=== PATIENT | male | born 1995 | race Caucasian/White ===

== ENCOUNTER 2017-04-14 17:09 | Emergency (ER) | payer MEDICAID, OTHER ==
[2017-04-14 17:28] VITALS: O2SAT 95
[2017-04-14] MEDS ORDERED: NS 1,000 ML IV ONE ×2 (17:39→18:31)
--- NOTE | 2017-04-14 17:46 | EDPHY ---
H & P Stated Complaint: BLOODY STOOLS FOR 1.5 WEEKS, DENIES ABD PAIN Time Seen by Provider: 04/14/17 17:14 HPI/ROS: CHIEF COMPLAINT: Loose bloody stools HISTORY OF PRESENT ILLNESS: This is a 22-year-old male who reports for the last week and half he has had intermittent episodes of loose, bloody stools. Symptoms started the day after having his wisdom teeth removed. Patient was given narcotic pain medications as well as nonsteroidals. No antibiotics. He reports having 1 episode of vomiting, nonbloody. May have had a fever a week and half ago but none currently. Reports ongoing queasiness and very mild discomfort in his stomach. Presented today because he has had increased stooling today, with bloody diarrhea. Reports stools are loose, and full of blood. No pain with defecation. No history of hemorrhoids. No history of inflammatory bowel disease or Crohn's disease. No urinary complaints. No lightheadedness, dizziness, or fainting. No travel outside the [place], no ill contacts. No chills, chest pain, shortness of breath, palpitations, vomiting, urinary complaints, headache, lightheadedness. REVIEW OF SYSTEMS: Aside from elements discussed in the HPI, a comprehensive 10-point review of systems was reviewed and is negative. PAST MEDICAL HISTORY: History of appendectomy. SOCIAL HISTORY: Nonsmoker, no alcohol. VITAL SIGNS Reviewed by me. GENERAL: Pleasant, well-developed well-nourished. No acute distress. HEENT: Atraumatic. Eyes: No icterus, no injection. Mouth: moist mucous membranes. No erythema or lesions. Neck: supple with no adenopathy. LUNGS: Clear to auscultation bilaterally, no wheezes, rhonchi or rales. CARDIAC: Regular rate and rhythm, no rubs, murmurs or gallops. ABDOMEN: Soft, no tenderness, no distension. Somewhat diminished bowel sounds. RECTAL: Nontender, no hemorrhoids noted, no blood on the glove. No stool on the glove. BACK: No CVA tenderness. EXTREMITIES: No trauma. No edema. Range of motion is normal throughout. NEURO: Alert and oriented, grossly nonfocal. SKIN: Warm and dry, no rash. PSYCHIATRIC: Normal mentation, no agitation. - Medical/Surgical History Other PMH: APPY, NEW DAILY HEADACHE SYNDROME - Social History Smoking Status: Never smoked Constitutional: Initial Vital Signs Temperature (C) 36.4 C 04/14/17 17:22 Heart Rate 72 04/14/17 17:22 Respiratory Rate 18 04/14/17 17:22 Blood Pressure 153/83 H 04/14/17 17:22 O2 Sat (%) 95 04/14/17 17:22 O2 Delivery Mode Room Air Allergies/Adverse Reactions: No Known Allergies Allergy (Unverified 04/14/17 17:21) Home Medications: Medication Instructions Recorded Ciprofloxacin [Cipro] 500 mg PO BID #6 tab 04/14/17 Medical Decision Making ED Course/Re-evaluation: 22-year-old male presenting with a week and half of ongoing loose stools that are bloody and mucousy. He does report a fever several days ago as well as 1 episode of vomiting. No travel. Patient IV placed and receives normal saline. Stool was positive for occult blood. Labs demonstrate a normal white count with a slightly elevated lymphocytosis. Electrolytes are largely unremarkable with the exception of a lipase of 306. Upper limit of normal is 300. Patient reports feeling improved with the fluids. He was able to give us a small stool sample, which was bloody. This was sent for laboratory analysis. Patient will be placed on ciprofloxacin for presumed bacterial infectious diarrhea. He does understand that he the diagnosis of inflammatory bowel disease or Crohn's disease is also in the differential. He will follow up with his primary care physician within the next 1-2 days and will notify the office that he has stool studies which are pending. He was discharged with his mother in improved condition. He had received 2 L of normal saline. He is hemodynamically stable. Differential Diagnosis: Differential diagnosis for the patient's diarrhea was considered including but not limited to gastroenteritis, colitis, diverticulitis, bacterial dysentery, viral diarrhea, medication effect, and malabsorption syndrome. - Data Points Laboratory Results: Laboratory Results 04/14/17 17:39 04/14/17 17:39 04/14/17 04/14/17 12 17:39 17:39 17:25 WBC 4.59 10^3/uL 10^3/uL (3.80-9.50) RBC 5.34 10^6/uL 10^6/uL (4.40-6.38) Hgb 15.3 g/dL g/dL (13.7-17.5) Hct 45.3 % % (40.0-51.0) MCV 84.8 fL fL (81.5-99.8) MCH 28.7 pg pg (27.9-34.1) MCHC 33.8 g/dL g/dL (32.4-36.7) RDW 12.0 % % (11.5-15.2) Plt Count 235 10^3/uL 10^3/uL (150-400) MPV 9.2 fL fL (8.7-11.7) Neut % (Auto) Not Reported Lymph % (Auto) Not Reported Sandoval % (Auto) Not Reported Eos % (Auto) Not Reported Baso % (Auto) Not Reported Nucleat RBC Rel Count 0.0 % % (0.0-0.2) Absolute Neuts (auto) Not Reported Absolute Lymphs (auto) Not Reported Absolute Monos (auto) Not Reported Absolute Eos (auto) Not Reported Absolute Basos (auto) Not Reported Absolute Nucleated RBC 0.00 10^3/uL 10^3/uL (0-0.01) Immature Gran % Not Reported Seg Neutrophils % 53 % % Band Neutrophils % 6 % % Lymphocytes % 26 % % Monocytes % 15 % % Immature Gran # Not Reported Absolute Seg Neuts 2.4 K/MM3 K/MM3 (1.8-7) Absolute Band Neuts 0.3 K/MM3 K/MM3 (0-0.7) Absolute Lymphocytes 1.2 K/mm3 K/mm3 (1.0-4.8) Absolute Monocytes 0.7 K/mm3 K/mm3 (0-0.8) RBC/WBC/PLT Morphology NORMAL (NORMAL) Atypical Lymphocytes 1+ H Platelet Estimate ADEQUATE (ADEQ) Sodium 138 mEq/L mEq/L (134-144) Potassium 3.8 mEq/L mEq/L (3.5-5.2) Chloride 100 mEq/L mEq/L (97-110) Carbon Dioxide 21 mEq/l L mEq/l (22-31) Anion Gap 17 mEq/L H mEq/L (8-16) BUN 13 mg/dL mg/dL (7-23) Creatinine 1.1 mg/dL mg/dL (0.7-1.3) Estimated GFR > 60 Glucose 97 mg/dL mg/dL (70-100) Calcium 9.0 mg/dL mg/dL (8.5-10.4) Lipase 306 IU/L H IU/L (23-300) Stool Concentration Pending Stool Occult Bld Scrn POSITIVE H (NEGATIVE) Stool Ova & Parasites Pending Parasite Trichrome Pending C. difficile Tox (PCR) Pending Direct Microscop Exam Pending Medications Given: Discontinued Medications Ciprofloxacin (Cipro) 500 mg PO EDNOW ONE PRN Reason: Protocol Stop: 04/14/17 19:45 Last Admin: 04/14/17 19:54 Dose: 500 mg Sodium Chloride (Ns) 1,000 mls @ 0 mls/hr IV EDNOW ONE; Wide Open PRN Reason: Protocol Stop: 04/14/17 17:40 Last Admin: 04/14/17 17:58 Dose: 1,000 mls Sodium Chloride (Ns) 1,000 mls @ 0 mls/hr IV ONCE ONE; Wide Open PRN Reason: Protocol Stop: 04/14/17 18:32 Last Admin: 04/14/17 18:40 Dose: 1,000 mls Departure - Departure Disposition: Home, Routine, Self-Care Clinical Impression: Bloody stool Diarrhea Qualifiers: Diarrhea type: presumed infectious Qualified Code(s): A09 - Infectious gastroenteritis and colitis, unspecified Abdominal pain Qualifiers: Abdominal location: generalized Qualified Code(s): R10.84 - Generalized abdominal pain Condition: Good Instructions: Ciprofloxacin (By mouth), Gastroenteritis (ED), Acute Diarrhea ( ED), Abdominal Pain (ED) Additional Instructions: You may begin taking the ciprofloxacin as directed. 500 mg by mouth 2 times a day for the next 3 days. Your stool be analyzed to identify any acute infectious cause of your diarrhea. I suggested you follow up with Dr. Quiroz within the next 2-3 days, especially if the symptoms are worsening. You may need a referral to a graphic engineer if the symptoms are persistent. For your diarrhea and bloody stools, I suggested you start with a bland diet and advance as tolerated. This means start with clear liquids such as water, Gatorade, juice, flat non- caffeinated soda. If you tolerate clear liquids, then you may add bland foods such as bananas, rice, or toast. If you do not have any worsening of your symptoms, you may begin to resume a regular diet. Referrals: QUIROZ,YUNIOR A [Primary Care Provider] - As per Instructions (Please follow up with Dr. Quiroz. Contact his office tomorrow and let them know that you were in the emergency department and that you have stool cultures that are pending.) Prescriptions: Ciprofloxacin [Cipro] 500 mg PO BID #6 tab
[2017-04-14 17:50] LABS: ADD MORPH? NO; FRAGMENT RBC FLAG 0 (0-99); HEMATOCRIT 45.3 % (40.0-51.0); HEMOGLOBIN 15.3 g/dL (13.7-17.5); LEFT SHIFT FLG 0 (0-99); LIPEMIA HEMOLYSIS FLAG 90 (0-99); MEAN CELL HEMOGLOBIN 28.7 pg (27.9-34.1); MEAN CELL HEMOGLOBIN CONCENTR. 33.8 g/dL (32.4-36.7); MEAN CELL VOLUME 84.8 fL (81.5-99.8); MEAN PLATELET VOLUME 9.2 fL (8.7-11.7); PLATELET CLUMPS FLAG 0 (0-99); PLATELET COUNT 235 10^3/uL (150-400); RED BLOOD CELL COUNT 5.34 10^6/uL (4.40-6.38)
[2017-04-14 17:51] LABS: ATYPICAL LYMPHOCYTE FLAG 300 (0-99)
[2017-04-14 17:52] LABS: ADD DIFF? YES; ADD SCAN? NO
[2017-04-14 18:10] LABS: ANION GAP 17 mEq/L (8-16); CARBON DIOXIDE 21 mEq/l (22-31); CHLORIDE 100 mEq/L (97-110); CREATININE 1.1 mg/dL (0.7-1.3); GLOMERULAR FILTRATION RATE > 60; GLUCOSE 97 mg/dL (70-100); POTASSIUM 3.8 mEq/L (3.5-5.2); SODIUM 138 mEq/L (134-144)
[2017-04-14 18:35] LABS: PLATELET ESTIMATE ADEQUATE (ADEQ)
[2017-04-14] MEDS ORDERED: CIPROFLOXACIN 500 MG TAB PO ONE (19:44)
[2017-04-14 20:05] VITALS: BP 144/77; PULSE 76; RESP 20; TEMP 98.2
[2017-04-16 16:40] LABS: O/P DESCRIPTION SOFT BROWN STOOL; O/P DIRECT NONE SEEN (NONE SEEN)
[2017-04-16 16:42] LABS: OCCULT BLOOD FECES POSITIVE (NEGATIVE)
[2017-04-17 18:58] LABS: O/P CONCENTRATION NONE SEEN (NONE SEEN); O/P TRICHROME NONE SEEN (NONE SEEN)
== END 2017-04-14 20:05 | disposition home or self-care (01) ==
LOC: CED 17:09
PROC: 3E0337Z Introduction of Electrolytic and Water Balance Substance into Peripheral Vein, Percutaneous Approach (ICD-10-PCS; principal; 2017-04-14)
DX: R19.7 Diarrhea, unspecified (principal); R10.84 Generalized abdominal pain; E86.9 Volume depletion, unspecified; Z90.49 Acquired absence of other specified parts of digestive tract
CPT/HCPCS: 80048-PO; 82270-PO; 83690-PO; 85025-PO